=== PATIENT | male | born 1965 | race Caucasian/White ===

== ENCOUNTER 2017-08-15 17:09 | Emergency (ER) | payer BC ==
[~2017-08-15] VITALS: Ht 172.7 cm; Wt 120.2 kg
[~2017-08-15 17:09] MED LIST changes: -ASPI81TA94 PO; -ATOR20TA22 PO; -CLOP75TA43 PO
[2017-08-15] MEDS ORDERED: ASPIRIN 81 MG CHEW PO ONE (17:25)
[2017-08-15] MEDS ORDERED: CLOPIDOGREL BISULFATE 75MG TAB PO ONE (17:30)
[2017-08-15] MEDS ORDERED: HEPARIN* SOD/D5W 25000 U/500ML 500 ML IV ONE ×2 (17:30→17:46)
[2017-08-15 17:31] LABS: PLATELET COUNT, AUTOMATED 233 K/uL (150-450)
[2017-08-15] MEDS ORDERED: LABETALOL HCL 100 MG/20ML VIAL IVP ONE (17:40)
[2017-08-15] MEDS ORDERED: LABETALOL HCL 20 MG/4 ML SYR IVP ONE (17:40)
[2017-08-15 17:46] LABS: INR 0.99
[2017-08-15] MEDS ORDERED: HEPARIN (PORC) 5000 UN/ML VIAL IVP ONE (17:50)
[2017-08-15] MEDS ORDERED: TENECTEPLASE 50 MG KIT IVP ONE (17:50)
[2017-08-15] MEDS ORDERED: NITROGLYCERN* 50 MG/D5W 250 ML 250 ML IV SCH (17:50)
--- NOTE | 2017-08-15 17:56 | EKG ---
[place] [facility] [place] NAME: RADHA HOLM : [id number] MR: [id number] V: [id number] EXAM DATE: ORDERING PHYSICIAN: LINDA CLARKE TECHNOLOGIST: EFREN Adler Reason : CARDIAC Blood Pressure : / mmHG Vent. Rate : 085 BPM Atrial Rate : 085 BPM P-R Int : 140 ms QRS Dur : 114 ms QT Int : 386 ms P-R-T Axes : 014 -60 084 degrees QTc Int : 459 ms Sinus rhythm with occasional premature ventricular complexes and fusion complexes Left axis deviation ST elevation, consider anterior injury or acute infarct Nonspecific interventricular conduction delay Abnormal ECG No previous ECGs available Confirmed by BERONICA HUNTER ([id number]) on 08/15/2017 7:47:47 PM Referred By: RON Confirmed By:BERONICA HUNTER
--- NOTE | 2017-08-15 17:56 | EKG ---
[place] [facility] [place]IENT NAME: RADHA HOLM : [id number] MR: [id number] V: [id number] EXAM DATE: ORDERING PHYSICIAN: LINDA CLARKE TECHNOLOGIST: EFREN Adler Reason : REPEAT Blood Pressure : / mmHG Vent. Rate : 081 BPM Atrial Rate : 081 BPM P-R Int : 134 ms QRS Dur : 122 ms QT Int : 398 ms P-R-T Axes : 023 -60 095 degrees QTc Int : 462 ms Sinus rhythm with occasional premature ventricular complexes and fusion complexes Possible Left atrial enlargement Left axis deviation Nonspecific intraventricular conduction delay ST elevation, consider anterior injury or acute infarct Abnormal ECG Confirmed by BERONICA HUNTER ([id number]) on 08/15/2017 7:49:45 PM Referred By: CORINNA Confirmed By:BERONICA HUNTER
--- NOTE | 2017-08-15 18:12 | ER Report ---
History and Physical Time Seen By MD: 17:10 Hx. of Stated Complaint: PT PRESENTS WITH CHEST PAIN FRO 30 MIN. 3 AK'S IN THE PAST HPI/ROS CHIEF COMPLAINT: Chest pain HISTORY OF PRESENT ILLNESS: Patient is a 52-year-old male who presents to ED with complaint of chest pain for the past 30 minutes. He states that he was just sitting there when he started to notice pressure in his mid chest radiating into his jaw and into his left shoulder. He states that 2 hours prior to this he did hit his head on a car door but denies any LOC. He has not had any nausea or vomiting. He denies any dizziness or vision changes. He has not noted any shortness of breath. 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 REVIEW OF SYSTEMS: Constitutional: No fever, no chills. Eyes: No discharge. ENT: No sore throat. Cardiovascular: See history of present illness. No palpitations. Respiratory: No cough, no shortness of breath. Gastrointestinal: No abdominal pain, no vomiting. Genitourinary: No hematuria. Musculoskeletal: No back pain. Skin: No rashes. Neurological: See history of present illness. Allergies: Coded Allergies: No Known Allergies (Verified Allergy, Mild, 08/15/17) Home Meds Active Scripts Allopurinol (ALLOPURINOL) 100 Mg Tablet, 1 TAB PO QDAY, #90 TAB 0 Refills Prov:ALLEN PADILLA DNP, [employer]-BC 05/16/17 Metoprolol Succinate (TOPROL XL) 50 Mg Tab.er.24h, 1 TAB PO QDAY for Blood Pressure, #30 TAB Prov:APOLLO ALONSO DO 05/13/17 Reported Medications Ibuprofen (IBUPROFEN) 200 Mg Capsule, 1-2 CAP PO PRN Y for PAIN/HEADACHE, CAPSULE 05/17/17 Vitamin E Mixed (VITAMIN E) Unknown Strength Tablet, PO QDAY 05/17/17 [place]-3 Fatty Acids (Fish Oil) 1 Cap Capsule, 1 CAP PO QDAY Y, 0 Refills 01/29/11 Multivitamins (Multivitamin) 1 Each Capsule, 1 EACH PO QDAY, 0 Refills 01/29/11 Aspirin (Aspirin) 325 Mg Tab, 325 MG PO ONCE 01/29/11 Discontinued Scripts Oxycodone Hcl/Acetaminophen (PERCOCET 5-325 MG TABLET) 1 Each Tablet, 1 EACH PO Q4-6H Y for PAIN, #12 Prov:APOLLO ALONSO DO 05/13/17 Prednisone 10 Mg Tab (PREDNISONE 10 MG TAB) 10 Mg Tablet, 10 MG PO QDAY Y for reduce arthritis, #9 2 tabs daily for 3 days 1 tab daily for 3 days Prov:APOLLO ALONSO DO 05/13/17 Reviewed Nurses Notes: Yes Old Medical Records Reviewed: Yes Hx Smoking: No Smoking Status: Never Smoker Hx Substance Use Disorder: No Hx Alcohol Use: Yes (OCC) Constitutional Vital Sign - Last 24 Hours 08/15/17 08/15/17 08/15/17 08/15/17 17:12 17:13 17:14 17:30 Temp 97.3 Pulse 87 88 90 82 Resp 24 B/P (MAP) 199/137 187/160 (169) 199/137 (157) 191/134 (153) Pulse Ox 96 O2 Delivery Room Air 08/15/17 08/15/17 08/15/17 08/15/17 17:39 17:45 17:50 18:00 Pulse 90 78 B/P (MAP) 204/139 (160) 184/129 (147) 175/123 (140) Pulse Ox 96 93 08/15/17 08/15/17 08/15/17 08/15/17 18:04 18:05 18:11 18:15 Pulse 80 B/P (MAP) 172/126 (141) 171/127 (142) O2 Flow Rate 2.0 08/15/17 08/15/17 08/15/17 18:18 18:20 18:22 B/P (MAP) 180/126 (144) 182/122 (142) 179/129 (146) Intake and Output 08/15/17 08/15/17 08/16/17 15:00 23:00 07:00 Intake Total 2 ml Balance 2 ml Physical Exam General Appearance: The patient is alert, has no immediate need for airway protection and no signs of toxicity. Patient appears to be no acute distress. Eyes: Pupils equal and round no pallor or injection. ENT, Mouth: Mucous membranes are moist. Respiratory: There are no retractions, lungs are clear to auscultation. Cardiovascular: Regular rate and rhythm. Gastrointestinal: Abdomen is soft and non tender, no masses, bowel sounds normal. Neurological: Cranial Nerves II-12 intact. Skin: Warm and dry, no rashes. Musculoskeletal: Neck is supple non tender. Extremities are nontender, nonswollen and have full range of motion. DIFFERENTIAL DIAGNOSIS: After history and physical exam differential diagnosis was considered for chest pain including but not limited to myocardial ischemia, pericarditis pulmonary embolus, chest wall pain, pleural inflammation and pulmonary infectious causes. Medical Decision Making Data Points Result Diagram: 08/15/17 1715 08/15/17 1715 Laboratory Hematology Test 08/15/17 17:15 Red Blood Count 6.92 M/uL (4.00-5.60) Mean Corpuscular Volume 83.7 fL (80.0-96.0) Mean Corpuscular Hemoglobin 28.1 pg (26.0-33.0) Mean Corpuscular Hemoglobin Concent 33.6 g/dL (32.0-36.0) Red Cell Distribution Width 14.2 % (11.5-14.5) Mean Platelet Volume 8.3 fL (7.2-11.1) Neutrophils (%) (Auto) 50.6 % (39.4-72.5) Lymphocytes (%) (Auto) 37.0 % (17.6-49.6) Monocytes (%) (Auto) 9.5 % (4.1-12.4) Eosinophils (%) (Auto) 2.1 % (0.4-6.7) Basophils (%) (Auto) 0.8 % (0.3-1.4) Nucleated RBC Relative Count (auto) 0.3 /100WBC Neutrophils # (Auto) 6.2 K/uL (2.0-7.4) Lymphocytes # (Auto) 4.5 K/uL (1.3-3.6) Monocytes # (Auto) 1.2 K/uL (0.3-1.0) Eosinophils # (Auto) 0.3 K/uL (0.0-0.5) Basophils # (Auto) 0.1 K/uL (0.0-0.1) Nucleated RBC Absolute Count (auto) 0.03 K/uL Prothrombin Time 13.1 seconds (12.0-14.4) Prothromb Time International Ratio 0.99 Activated Partial Thromboplast Time 28 seconds (23-35) D-Dimer Quantitative (PE/DVT) 0.29 ug/ml (0-0.50) Sodium Level 139 mmol/L (137-145) Potassium Level 3.5 mmol/L (3.5-5.0) Chloride Level 99 mmol/L (98-107) Carbon Dioxide Level 26 mmol/L (22-30) Blood Urea Nitrogen 14 mg/dl (9-21) Creatinine 1.00 mg/dl (0.66-1.25) Glomerular Filtration Rate Calc > 60.0 Random Glucose 99 mg/dl (75-110) Calcium Level 9.6 mg/dl (8.4-10.2) Total Bilirubin 0.7 mg/dl (0.2-1.3) Aspartate Amino Transf (AST/SGOT) 50 U/L (0-35) Alanine Aminotransferase (ALT/SGPT) 82 U/L (0-56) Alkaline Phosphatase 101 U/L (0-126) Troponin I 0.198 ng/ml Total Protein 8.5 gm/dl (6.3-8.2) Albumin 4.6 g/dl (3.5-5.0) Chemistry Test 08/15/17 17:15 White Blood Count 12.2 k/uL (4.5-11.0) Red Blood Count 6.92 M/uL (4.00-5.60) Hemoglobin 19.5 g/dL (14.0-18.0) Hematocrit 57.9 % (42.0-52.0) Mean Corpuscular Volume 83.7 fL (80.0-96.0) Mean Corpuscular Hemoglobin 28.1 pg (26.0-33.0) Mean Corpuscular Hemoglobin Concent 33.6 g/dL (32.0-36.0) Red Cell Distribution Width 14.2 % (11.5-14.5) Platelet Count 233 K/uL (150-450) Mean Platelet Volume 8.3 fL (7.2-11.1) Neutrophils (%) (Auto) 50.6 % (39.4-72.5) Lymphocytes (%) (Auto) 37.0 % (17.6-49.6) Monocytes (%) (Auto) 9.5 % (4.1-12.4) Eosinophils (%) (Auto) 2.1 % (0.4-6.7) Basophils (%) (Auto) 0.8 % (0.3-1.4) Nucleated RBC Relative Count (auto) 0.3 /100WBC Neutrophils # (Auto) 6.2 K/uL (2.0-7.4) Lymphocytes # (Auto) 4.5 K/uL (1.3-3.6) Monocytes # (Auto) 1.2 K/uL (0.3-1.0) Eosinophils # (Auto) 0.3 K/uL (0.0-0.5) Basophils # (Auto) 0.1 K/uL (0.0-0.1) Nucleated RBC Absolute Count (auto) 0.03 K/uL Prothrombin Time 13.1 seconds (12.0-14.4) Prothromb Time International Ratio 0.99 Activated Partial Thromboplast Time 28 seconds (23-35) D-Dimer Quantitative (PE/DVT) 0.29 ug/ml (0-0.50) Glomerular Filtration Rate Calc > 60.0 Calcium Level 9.6 mg/dl (8.4-10.2) Total Bilirubin 0.7 mg/dl (0.2-1.3) Aspartate Amino Transf (AST/SGOT) 50 U/L (0-35) Alanine Aminotransferase (ALT/SGPT) 82 U/L (0-56) Alkaline Phosphatase 101 U/L (0-126) Troponin I 0.198 ng/ml Total Protein 8.5 gm/dl (6.3-8.2) Albumin 4.6 g/dl (3.5-5.0) Coagulation Test 08/15/17 17:15 Prothrombin Time 13.1 seconds Prothromb Time International Ratio 0.99 Activated Partial Thromboplast Time 28 seconds D-Dimer Quantitative (PE/DVT) 0.29 ug/ml EKG/Imaging EKG Interpretation 12 lead EKG: Rhythm: Normal sinus rhythm, rate 85 bpm [place]: normal QRS: normal ST segments: ST elevation noted in V1 and V2 consistent with anterior STEMI 12 lead EK:57 Rhythm: Normal sinus rhythm, rate 81 beats for minute [place]: normal QRS: normal ST segments: ST elevation again noted V1 and V2. 12 lead EK:13 Rhythm: Sinus rhythm, rate 82 bpm [place]: normal QRS: normal ST segments: ST elevation noted in V1 and V2 with some reciprocal changes in aVR and aVL. 12 lead EK:23 Rhythm: normal sinus rhythm [place]: normal QRS: normal ST segments: ST elevation again noted in V1 and V2 with some reciprocal changes in aVR and aVL. Monitor Interpretation: Normal Sinus Rhythm Imaging CXR: IMPRESSION: No acute findings. Report Dictated By: Molly Yuan MD at 08/15/2017 6:09 PM Report E-Signed By: Molly Yuan MD at 08/15/2017 6:[address] Head: IMPRESSION: 1. Mild senescent changes without acute abnormality. Report Dictated By: Lamonte Hoang at 08/15/2017 6:14 PM Report E-Signed By: Lamonte Hoang at 08/15/2017 6:18 PM ED Course/Re-evaluation ED Course 08/15/2017 6:00:58 pm - Will obtain labs, EKG, chest x-ray. Patient will also need a CT of his head. Patient had obvious ST elevation of V1 and V2 consistent with a anterior STEMI. Discussed patient with Dr. Barrett, Cardiology and discussed EKG findings with patient's history. Discussed that he does have a STEMI. He advises to give patient. 300 mg Plavix, heparin bolus and drip, lytics. Patient has significant hypertension now we'll give him 20 mg IV labetalol and nitro drip prior to push of lytics. Will also need a CT of the head prior to push lytics. Patient had normal CT of the head and chest x-ray per my read and heparin and lytics were pushed. Completed serial EKGs showing continuing ST elevation in V1 and V2 with some advancement of reciprocal changes in aVR and aVL. Decision to Disposition Date: Aug 15, 2017 Decision to Disposition Time: 18:02 Depart Departure Latest Vital Signs Vital Signs Date Time Temp Pulse Resp B/P (MAP) Pulse Ox O2 Delivery O2 Flow Rate FiO2 08/15/17 18:22 179/129 (146) 08/15/17 18:05 80 08/15/17 18:04 2.0 08/15/17 17:50 93 08/15/17 17:12 97.3 24 Room Air Impression: Primary Impression: STEMI (ST elevation myocardial infarction) Condition: Improved Disposition: XFER TO [facility] [employer] WORK[facility]/PA consult with MD: Verbally MD Consult Note: Dr. Barrett, Cardiology Dr. Hollingsworth, ED Problem Qualifiers Primary Impression: STEMI (ST elevation myocardial infarction) Involved coronary artery: unspecified coronary artery Qualified Codes: I21.3 - ST elevation (STEMI) myocardial infarction of unspecified site LINDA CLARKE PA-C Aug 15, 2017 18:12
--- NOTE | 2017-08-15 18:13 | RADIOLOGY IMAGING REPORT ---
FACILITY: [facility] PATIENT NAME: Yobani Mckeon : 1965 MR: [id number] V: [id number] EXAM DATE: ORDERING PHYSICIAN: LINDA CLARKE TECHNOLOGIST: [place] [facility] [place] Patient: Yobani Mckeon : 1965 Visit/Account:[id number] Date of Sevice: 08/15/2017 INDICATION: Chest Pain. DATE: 08/15/2017 6:09 PM. TECHNIQUE: CHEST SINGLE AP COMPARISON: January 29, 2011 radiograph FINDINGS: Heart size is at the upper limits of normal. No focal consolidation or effusion. No pneumot horax. IMPRESSION: No acute findings. Report Dictated By: Molly Yuan MD at 08/15/2017 6:09 PM Report E-Signed By: Molly Yuan MD at 08/15/2017 6:09 PM WSN:[id number]
--- NOTE | 2017-08-15 18:21 | RADIOLOGY IMAGING REPORT ---
FACILITY: [facility] - [place] PATIENT NAME: Yobani Mckeon : 1965 MR: [id number] V: [id number] EXAM DATE: ORDERING PHYSICIAN: LINDA CLARKE TECHNOLOGIST: Location: [facility] - [place] Patient: Yobani Mckeon : 1965 Visit/Account:[id number] Date of Sevice: 08/15/2017 CT Head without contrast Indication: Head pain. Hit head earlier today. Comparison: None available Technique: Axial CT images were obtained through the brain from the skull base to the vertex without administration of IV contrast. Reformatted coronal and sagittal images were also obtained. One of the following dose optimization techniques was utilized in the performance of this exam: autom ated exposure control; adjustment of the mA and/or kV according to the patient's size; or use of an i terative reconstruction technique. Specific details can be referenced in the facility's radiology CT exam operational policy. Findings: No evidence of mass, mass effect, or midline shift. No acute intracranial hemorrhage or acute territorial infarction. No extra-axial fluid collection or hydrocephalus. Mild age-related cerebral atrophy. Minimal perivent ricular white matter ischemic changes consistent small vessel disease. Age-related basal ganglia calc ifications. Garcia/white matter differentiation appears normal. Bony structures show no fractures or lesions. Mild bilateral internal carotid artery calcifications. The visualized paranasal sinuses and mastoid air cells are clear. IMPRESSION: 1. Mild senescent changes without acute abnormality. Report Dictated By: Lamonte Hoang at 08/15/2017 6:14 PM Report E-Signed By: Lamonte Hoang at 08/15/2017 6:18 PM WSN:[id number]
[2017-08-15 18:22] VITALS: BP 179/129
--- NOTE | 2017-08-16 08:54 | EKG ---
FACILITY: [facility] PATIENT NAME: RADHA HOLM : [id number] MR: [id number] V: [id number] EXAM DATE: ORDERING PHYSICIAN: LINDA CLARKE TECHNOLOGIST: Test Reason : Blood Pressure : / mmHG Vent. Rate : 082 BPM Atrial Rate : 082 BPM P-R Int : 156 ms QRS Dur : 120 ms QT Int : 392 ms P-R-T Axes : 010 -58 092 degrees QTc Int : 457 ms Sinus rhythm with fusion complexes Left axis deviation Nonspecific intraventricular conduction delay ST elevation, consider anterior injury or acute infarct ACUTE [place] Abnormal ECG No previous ECGs available Confirmed by TODD JACOBO ([id number]) on 08/16/2017 5:42:54 PM Referred By: Confirmed By:TODD JACOBO
--- NOTE | 2017-08-16 08:54 | EKG ---
[place] [facility] [place] RADHA HOLM : [id number] MR: [id number] V: [id number] EXAM DATE: ORDERING PHYSICIAN: LINDA CLARKE TECHNOLOGIST: Test Reason : Blood Pressure : / mmHG Vent. Rate : 082 BPM Atrial Rate : 082 BPM P-R Int : 156 ms QRS Dur : 118 ms QT Int : 392 ms P-R-T Axes : 014 -61 093 degrees QTc Int : 457 ms Normal sinus rhythm Left axis deviation Anterior infarct , possibly acute ACUTE [place] Abnormal ECG No previous ECGs available Confirmed by TODD JACOBO ([id number]) on 08/16/2017 5:43:00 PM Referred By: Confirmed By:TODD JACOBO
== END 2017-08-15 18:45 | disposition short-term general hospital (02) ==
LOC: ER 17:25
DX: I21.3 ST elevation (STEMI) myocardial infarction of unspecified site (principal)
CPT/HCPCS: 70450; 71045; 84484; 85025; 85379; 85610; 85730; 93005; 96365; 96367; 96375; 99285; J1644; J3101; J3490; 82040; 82247; 82310; 82374; 82435; 82565; 82947; 84075; 84132; 84155; 84295; 84450; 84460; 84520

== ENCOUNTER → 2017-08-15 | Outpatient (REF) ==
[~2017-08-15] MED LIST: ALLO100T70 PO; ASP325 PO; ASPI81TA94 PO; ATOR20TA22 PO; CLO75 PO; CLOP75TA43 PO; FISH OIL1 CAP PO; IBUP200C71 PO; METO-233 PO; METO1TAB PO; METO25TA93 PO; MULT1CAP59 PO; OXYC-865 PO; OXYC20TA86 PO; PER PO; PRED-1 PO; SIMV-1 PO; VITA100T4 PO; ZOCAR; [UNRECOGNIZED DRUG - REMARK]
== END ==
LOC: AMB 18:08
PROVIDERS: ATTEND Nurse Practitioner
DX: Z02.9 Encounter for administrative examinations, unspecified (principal)

== ENCOUNTER 2017-08-22 15:11 | Emergency (ER) | payer BC ==
[~2017-08-22] VITALS: Ht 172.7 cm; Wt 124.7 kg
[~2017-08-22 15:11] MED LIST changes: -ASPI81TA94 PO; -ATOR20TA22 PO; -CLOP75TA43 PO
[2017-08-22] MEDS ORDERED: ATOR20TA22 PO (15:21)
[2017-08-22] MEDS ORDERED: CLOP75TA43 PO (15:21)
[2017-08-22] MEDS ORDERED: ASPI81TA94 PO (15:21)
[2017-08-22] MEDS ORDERED: ASPIRIN 81 MG CHEW PO ONE (15:25)
[2017-08-22 15:37] LABS: PLATELET COUNT, AUTOMATED 263 K/uL (150-450)
[2017-08-22] MEDS ORDERED: NITROGLYCERIN 0.4 MG SUBL SL ONE (15:40)
[2017-08-22 15:46] LABS: INR 1.05
--- NOTE | 2017-08-22 15:48 | RADIOLOGY IMAGING REPORT ---
FACILITY: [facility] - [place] PATIENT NAME: Yobani Mckeon : 1965 MR: [id number] V: [id number] EXAM DATE: ORDERING PHYSICIAN: LINDA CLARKE TECHNOLOGIST: Location: [facility] Patient: Yobani Mckeon : 1965 Visit/Account:[id number] Date of Sevice: 08/22/2017 CHEST SINGLE AP Indication: Chest pain.. Comparison: 08/07/2017. Findings: Cardia mediastinal silhouette and pulmonary vessels within normal limits for the technique. Sternotom y changes are again present. There is no focal infiltrate or lobar consolidation. No pneumothorax or pleural effusion. No nodule. Upper abdomen is unremarkable. No acute bony abnormality. IMPRESSION: 1. No acute cardiopulmonary process. Report Dictated By: Lamonte Hoang at 08/22/2017 3:43 PM Report E-Signed By: Lamonte Hoang at 08/22/2017 3:43 PM WSN:[id number]
--- NOTE | 2017-08-22 16:06 | EKG ---
[facility] PATIENT NAME: RADHA HOLM : [id number] MR: [id number] V: [id number] EXAM DATE: ORDERING PHYSICIAN: LINDA CLARKE TECHNOLOGIST: EFREN Adler Reason : CP Blood Pressure : / mmHG Vent. Rate : 083 BPM Atrial Rate : 083 BPM P-R Int : 124 ms QRS Dur : 110 ms QT Int : 374 ms P-R-T Axes : 029 -42 -09 degrees QTc Int : 439 ms Sinus rhythm Left axis deviation Poor R wave progression anteriorly Diffuse ST changes appear ischemic Abnormal ECG Confirmed by BERONICA HUNTER ([id number]) on 08/23/2017 5:47:38 AM Referred By: CORINNA Confirmed By:BERONICA HUNTER
[2017-08-22] MEDS ORDERED: HEPARIN (PORC) 5000 UN/ML VIAL IVP ONE (16:10)
[2017-08-22] MEDS ORDERED: HEPARIN* SOD/D5W 25000 U/500ML 500 ML IV ONE (16:10)
--- NOTE | 2017-08-22 16:16 | EKG ---
FACILITY: [facility] PATIENT NAME: RADHA HOLM : [id number] MR: [id number] V: [id number] EXAM DATE: ORDERING PHYSICIAN: LINDA CLARKE TECHNOLOGIST: EFREN Adler Reason : REPEAT Blood Pressure : / mmHG Vent. Rate : 075 BPM Atrial Rate : 075 BPM P-R Int : 130 ms QRS Dur : 108 ms QT Int : 384 ms P-R-T Axes : 025 -40 -16 degrees QTc Int : 428 ms Sinus Left axis deviation Diffuse ST changes with elevation in I, AVL Lateral injury pattern ACUTE ID Abnormal ECG Confirmed by BERONICA HUNTER ([id number]) on 08/23/2017 5:49:15 AM Referred By: CORINNA Confirmed By:BERONICA HUNTER
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
[2017-08-22 16:45] VITALS: BP 125/89
[2017-08-22] MEDS ORDERED: TENECTEPLASE 50 MG KIT IVP ONE (16:55)
--- NOTE | 2017-08-22 16:57 | EKG ---
FACILITY: [facility] PATIENT NAME: RADHA HOLM : [id number] MR: [id number] V: [id number] EXAM DATE: ORDERING PHYSICIAN: LINDA CLARKE TECHNOLOGIST: EFREN Adler Reason : REPEAT Blood Pressure : / mmHG Vent. Rate : 074 BPM Atrial Rate : 074 BPM P-R Int : 140 ms QRS Dur : 112 ms QT Int : 394 ms P-R-T Axes : 010 -44 -11 degrees QTc Int : 437 ms Sinus rhythm Left axis deviation Poor R wave progression anteriorly Diffuse ST changes with elevation in I, AVL Lateral injury pattern ACUTE LA Abnormal ECG Confirmed by BERONICA HUNTER ([id number]) on 08/23/2017 5:50:39 AM Referred By: CORINNA Confirmed By:BERONICA HUNTER
--- NOTE | 2017-08-23 08:10 | EKG ---
FACILITY: [facility] [place] PATIENT NAME: RADHA HOLM : [id number] MR: [id number] V: [id number] EXAM DATE: ORDERING PHYSICIAN: LINDA CLARKE TECHNOLOGIST: EFREN Adler Reason : REPEAT Blood Pressure : / mmHG Vent. Rate : 074 BPM Atrial Rate : 074 BPM P-R Int : 124 ms QRS Dur : 114 ms QT Int : 400 ms P-R-T Axes : 016 -42 -07 degrees QTc Int : 444 ms Normal sinus rhythm Left axis deviation Cannot rule out Anterior infarct (cited on or before 15-AUG-2017) Lateral injury pattern ACUTE PR Abnormal ECG When compared with ECG of 22-AUG-2017 16:31, No significant change was found Confirmed by GHULAM BOURNE ([id number]) on 08/23/2017 2:04:14 PM Referred By: CORINNA Confirmed By:GHULAM BOURNE
--- NOTE | 2017-08-23 08:10 | EKG ---
FACILITY: [facility] PATIENT NAME: RADHA HOLM : [id number] MR: [id number] V: [id number] EXAM DATE: ORDERING PHYSICIAN: LINDA CLARKE TECHNOLOGIST: EFREN Adler Reason : REPEAT Blood Pressure : / mmHG Vent. Rate : 074 BPM Atrial Rate : 074 BPM P-R Int : 122 ms QRS Dur : 116 ms QT Int : 402 ms P-R-T Axes : 024 -40 -12 degrees QTc Int : 446 ms Normal sinus rhythm Left axis deviation Cannot rule out Anterior infarct (cited on or before 15-AUG-2017) Lateral injury pattern ACUTE HI Abnormal ECG When compared with ECG of 22-AUG-2017 16:05, Serial changes of Anterior infarct present Confirmed by GHULAM BOURNE ([id number]) on 08/23/2017 2:03:55 PM Referred By: CORINNA Confirmed By:GHULAM BOURNE
--- NOTE | 2017-08-23 08:10 | EKG ---
FACILITY: [facility] [place] PATIENT NAME: RADHA HOLM : [id number] MR: [id number] V: [id number] EXAM DATE: ORDERING PHYSICIAN: LINDA CLARKE TECHNOLOGIST: EFREN Adler Reason : REPEAT Blood Pressure : / mmHG Vent. Rate : 074 BPM Atrial Rate : 074 BPM P-R Int : 128 ms QRS Dur : 112 ms QT Int : 402 ms P-R-T Axes : 021 -39 -12 degrees QTc Int : 446 ms Normal sinus rhythm Left axis deviation Cannot rule out Anterior infarct (cited on or before 15-AUG-2017) Lateral injury pattern ACUTE [place] Abnormal ECG When compared with ECG of 22-AUG-2017 16:22, No significant change was found Confirmed by GHULAM BOURNE ([id number]) on 08/23/2017 2:04:35 PM Referred By: CORINNA Confirmed By:GHULAM BOURNE
== END 2017-08-22 17:10 | disposition short-term general hospital (02) ==
LOC: ER 15:16
DX: I21.3 ST elevation (STEMI) myocardial infarction of unspecified site (principal); R07.89 Other chest pain
CPT/HCPCS: 71045; 84484; 85025; 85379; 85610; 85730; 93005; 96365; 96375; 99285; J1644; J3101; 82040; 82247; 82310; 82374; 82435; 82565; 82947; 84075; 84132; 84155; 84295; 84450; 84460; 84520

== ENCOUNTER → 2017-08-22 | Outpatient (REF) ==
[~2017-08-22] MED LIST changes: +ASPI81TA94 PO; +ATOR20TA22 PO; +CLOP75TA43 PO
== END ==
LOC: AMB 16:39
PROVIDERS: ATTEND Nurse Practitioner
DX: Z02.9 Encounter for administrative examinations, unspecified (principal)

== ENCOUNTER 2017-09-01 18:42 | Emergency (ER) | payer BC ==
[~2017-09-01 18:42] MED LIST changes: +ASPI81TA94 PO; +ATOR20TA22 PO; +CLOP75TA43 PO
--- NOTE | 2017-09-01 18:45 | ER Report ---
History and Physical Time Seen By MD: 18:44 HPI/ROS CHIEF COMPLAINT: Abdominal pain, back pain HISTORY OF PRESENT ILLNESS: 52-year-old male presents ambulatory to the ER not feeling well since this morning. Complains of bilateral flank and back pain radiating around to his lower anterior abdomen. Patient noted pain radiating into his testicles and groin this morning but that has resolved. Patient states he ate out last night at [employer]. Patient reports she's had several episodes of vomiting. When he strained ED he's vomited up whatever he ate or drank. Patient's history is significant for having an acute STEMI receiving thrombolytics and being sent to [facility] one week ago. Patient denies chest pain, shortness breath, or diaphoresis. Patient states his Plavix was discontinued. He is on Birlinta now. Patient denies history of abdominal surgeries. He's had no diarrhea or constipation. He's had no dysuria , frequency or hematuria. He notes no exacerbating or relieving factors regarding his pain except when he vomits he feels better. REVIEW OF SYSTEMS: Respiratory: No cough, no dyspnea. Cardiovascular: No chest pain, no palpitations. Gastrointestinal: As above Musculoskeletal: No back pain. Allergies: Coded Allergies: No Known Allergies (Verified Allergy, Mild, 09/01/17) Home Meds Active Scripts Ondansetron Hcl (ZOFRAN) 4 Mg Tablet, 4 MG PO Q8-12H, #10 Prov:APOLLO ALONSO DO 09/01/17 Ondansetron Hcl (ZOFRAN) 4 Mg Tablet, 4 MG PO Q6H Y for NAUSEA/VOMITING, #10 Prov:APOLLO ALONSO DO 09/01/17 Allopurinol (ALLOPURINOL) 100 Mg Tablet, 1 TAB PO QDAY, #90 TAB 0 Refills Prov:ALLEN PADILLA DNP, TELEPHONE [employer]ICITOR-BC 05/16/17 Reported Medications Ticagrelor (BRILINTA) 90 Mg Tablet, 90 MG PO 09/01/17 Atorvastatin Calcium (LIPITOR) 20 Mg Tablet, 1 TAB PO QDAY, TAB 08/22/17 Aspirin (ASPIRIN) 81 Mg Tab.chew, 81 MG PO QDAY, TAB.CHEW 08/22/17 Discontinued Reported Medications Clopidogrel Bisulfate (PLAVIX) 75 Mg Tablet, 1 TAB PO QDAY, TAB 08/22/17 Reviewed Nurses Notes: Yes Old Medical Records Reviewed: Yes Hx Smoking: No Smoking Status: Never Smoker Hx Substance Use Disorder: No Hx Alcohol Use: Yes (OCC) Constitutional Vital Sign - Last 24 Hours 09/01/17 09/01/17 09/01/17 09/01/17 18:48 18:51 18:52 18:57 Temp 98.0 Pulse 75 75 Resp 14 14 B/P (MAP) 151/100 (117) 151/100 118/94 (102) Pulse Ox 94 92 O2 Delivery Room Air 09/01/17 09/01/17 09/01/17 09/01/17 19:00 19:12 19:27 19:30 Pulse 69 64 Resp 16 18 B/P (MAP) 128/102 (111) 132/89 (103) Pulse Ox 93 94 09/01/17 09/01/17 09/01/17 09/01/17 19:41 19:42 19:57 20:00 Pulse 67 71 Resp 19 16 B/P (MAP) 142/97 (112) 145/101 (116) Pulse Ox 96 96 09/01/17 09/01/17 09/01/17 09/01/17 20:12 20:27 20:32 20:47 Pulse 73 69 70 70 Resp 21 17 10 0 Pulse Ox 95 97 96 93 09/01/17 09/01/17 09/01/17 09/01/17 21:00 21:17 21:30 21:35 Pulse 64 73 Resp 25 23 B/P (MAP) 120/84 (96) 111/81 (91) Pulse Ox 92 93 09/01/17 09/01/17 09/01/17 09/01/17 21:50 22:00 22:05 22:20 Pulse 69 67 67 Resp 19 19 25 B/P (MAP) 113/83 (93) Pulse Ox 92 92 93 09/01/17 09/01/17 09/01/17 22:30 22:35 22:42 Pulse 67 85 Resp 19 16 B/P (MAP) 111/79 (90) 131/85 (100) Pulse Ox 94 92 O2 Delivery Room Air Physical Exam General Appearance: The patient is alert, has no immediate need for airway protection and no current signs of toxicity. Vital signs stable, afebrile, pulse ox normal HEENT: Pupils equal and round no injection. Oropharynx without redness or exudate, mucous members are moist Respiratory: Chest is non tender, lungs are clear to auscultation. Cardiac: regular rate and rhythm Gastrointestinal: Abdomen is soft, mild epigastric tenderness, no rebound or guarding, no masses, bowel sounds normal. Musculoskeletal: Neck: Neck is supple and non tender. Extremities have full range of motion and are non tender. Skin: No rashes or lesions. DIFFERENTIAL DIAGNOSIS: After history and physical exam differential diagnosis was considered for abdominal pain including but not limited to appendicitis, cholecystitis, gastritis and urinary tract infection. Medical Decision Making Data Points Result Diagram: 09/01/17190409/01/171904 Laboratory Hematology Test 09/01/17 19:05 09/01/17 19:38 09/01/17 21:55 Red Blood Count 6.17 M/uL (4.00-5.60) Mean Corpuscular Volume 83.1 fL (80.0-96.0) Mean Corpuscular Hemoglobin 28.5 pg (26.0-33.0) Mean Corpuscular Hemoglobin Concent 34.3 g/dL (32.0-36.0) Red Cell Distribution Width 13.3 % (11.5-14.5) Mean Platelet Volume 9.1 fL (7.2-11.1) Neutrophils (%) (Auto) 78.6 % (39.4-72.5) Lymphocytes (%) (Auto) 13.9 % (17.6-49.6) Monocytes (%) (Auto) 6.1 % (4.1-12.4) Eosinophils (%) (Auto) 0.7 % (0.4-6.7) Basophils (%) (Auto) 0.7 % (0.3-1.4) Nucleated RBC Relative Count (auto) 0.1 /100WBC Neutrophils # (Auto) 8.0 K/uL (2.0-7.4) Lymphocytes # (Auto) 1.4 K/uL (1.3-3.6) Monocytes # (Auto) 0.6 K/uL (0.3-1.0) Eosinophils # (Auto) 0.1 K/uL (0.0-0.5) Basophils # (Auto) 0.1 K/uL (0.0-0.1) Nucleated RBC Absolute Count (auto) 0.01 K/uL Sodium Level 140 mmol/L (137-145) Potassium Level 4.3 mmol/L (3.5-5.0) Chloride Level 108 mmol/L (98-107) Carbon Dioxide Level 18 mmol/L (22-30) Blood Urea Nitrogen 15 mg/dl (9-21) Creatinine 1.40 mg/dl (0.66-1.25) Glomerular Filtration Rate Calc 53.2 Random Glucose 132 mg/dl (75-110) Calcium Level 9.6 mg/dl (8.4-10.2) Total Bilirubin 1.0 mg/dl (0.2-1.3) Aspartate Amino Transf (AST/SGOT) 37 U/L (0-35) Alanine Aminotransferase (ALT/SGPT) 73 U/L (0-56) Alkaline Phosphatase 91 U/L (0-126) Total Protein 7.8 gm/dl (6.3-8.2) Albumin 4.0 g/dl (3.5-5.0) Amylase Level 67 U/L (0-110) Lipase 94 U/L (23-300) Urine Color Yellow Urine Clarity Clear Urine pH 6.0 pH (4.8-9.5) Urine Specific [place] 1.021 Urine Protein Negative mg/dL (NEGATIVE) Urine Glucose (UA) Negative mg/dL (NEGATIVE) Urine Ketones Trace mg/dL (NEGATIVE) Urine Blood Small (NEGATIVE) Urine Nitrite Negative (NEGATIVE) Urine Bilirubin Negative (NEGATIVE) Urine Urobilinogen Negative mg/dL (0.2-1.9) Urine Leukocyte Esterase Negative (NEGATIVE) Urine RBC 8 /HPF (0-2/HPF) Urine WBC 2 /HPF (0-5/HPF) Urine Squamous Epithelial Cells None /LPF (</=FEW) Urine Bacteria Negative /HPF (NONE-FEW) Urine Mucus Few /HPF (NONE-FEW) Troponin I 0.200 ng/ml Chemistry Test 09/01/17 19:05 09/01/17 19:38 09/01/17 21:55 White Blood Count 10.1 k/uL (4.5-11.0) Red Blood Count 6.17 M/uL (4.00-5.60) Hemoglobin 17.6 g/dL (14.0-18.0) Hematocrit 51.3 % (42.0-52.0) Mean Corpuscular Volume 83.1 fL (80.0-96.0) Mean Corpuscular Hemoglobin 28.5 pg (26.0-33.0) Mean Corpuscular Hemoglobin Concent 34.3 g/dL (32.0-36.0) Red Cell Distribution Width 13.3 % (11.5-14.5) Platelet Count 353 K/uL (150-450) Mean Platelet Volume 9.1 fL (7.2-11.1) Neutrophils (%) (Auto) 78.6 % (39.4-72.5) Lymphocytes (%) (Auto) 13.9 % (17.6-49.6) Monocytes (%) (Auto) 6.1 % (4.1-12.4) Eosinophils (%) (Auto) 0.7 % (0.4-6.7) Basophils (%) (Auto) 0.7 % (0.3-1.4) Nucleated RBC Relative Count (auto) 0.1 /100WBC Neutrophils # (Auto) 8.0 K/uL (2.0-7.4) Lymphocytes # (Auto) 1.4 K/uL (1.3-3.6) Monocytes # (Auto) 0.6 K/uL (0.3-1.0) Eosinophils # (Auto) 0.1 K/uL (0.0-0.5) Basophils # (Auto) 0.1 K/uL (0.0-0.1) Nucleated RBC Absolute Count (auto) 0.01 K/uL Glomerular Filtration Rate Calc 53.2 Calcium Level 9.6 mg/dl (8.4-10.2) Total Bilirubin 1.0 mg/dl (0.2-1.3) Aspartate Amino Transf (AST/SGOT) 37 U/L (0-35) Alanine Aminotransferase (ALT/SGPT) 73 U/L (0-56) Alkaline Phosphatase 91 U/L (0-126) Total Protein 7.8 gm/dl (6.3-8.2) Albumin 4.0 g/dl (3.5-5.0) Amylase Level 67 U/L (0-110) Lipase 94 U/L (23-300) Urine Color Yellow Urine Clarity Clear Urine pH 6.0 pH (4.8-9.5) Urine Specific [place] 1.021 Urine Protein Negative mg/dL (NEGATIVE) Urine Glucose (UA) Negative mg/dL (NEGATIVE) Urine Ketones Trace mg/dL (NEGATIVE) Urine Blood Small (NEGATIVE) Urine Nitrite Negative (NEGATIVE) Urine Bilirubin Negative (NEGATIVE) Urine Urobilinogen Negative mg/dL (0.2-1.9) Urine Leukocyte Esterase Negative (NEGATIVE) Urine RBC 8 /HPF (0-2/HPF) Urine WBC 2 /HPF (0-5/HPF) Urine Squamous Epithelial Cells None /LPF (</=FEW) Urine Bacteria Negative /HPF (NONE-FEW) Urine Mucus Few /HPF (NONE-FEW) Troponin I 0.200 ng/ml Urinalysis Test 09/01/17 19:38 Urine Color Yellow Urine Clarity Clear Urine pH 6.0 pH (4.8-9.5) Urine Specific [place] 1.021 Urine Protein Negative mg/dL (NEGATIVE) Urine Glucose (UA) Negative mg/dL (NEGATIVE) Urine Ketones Trace mg/dL (NEGATIVE) Urine Blood Small (NEGATIVE) Urine Nitrite Negative (NEGATIVE) Urine Bilirubin Negative (NEGATIVE) Urine Urobilinogen Negative mg/dL (0.2-1.9) Urine Leukocyte Esterase Negative (NEGATIVE) Urine RBC 8 /HPF (0-2/HPF) Urine WBC 2 /HPF (0-5/HPF) Urine Squamous Epithelial Cells None /LPF (</=FEW) Urine Bacteria Negative /HPF (NONE-FEW) Urine Mucus Few /HPF (NONE-FEW) EKG/Imaging EKG Interpretation 12 lead EK Rhythm: normal sinus rhythm [place]: normal QRS: normal ST segments: normal, comparison to previous EKG dated 08/22/17, acute ischemic changes have resolved. ED Course/Re-evaluation Clinical Indication for ER IV: Hydration, IV Access ED Course Patient was admitted to an examination room. H&P was done. The differential diagnoses was considered. On clinical examination. Patient is abdominal symptoms. His concern is that one week ago he suffered a STEMI. He was given from a [facility] and transferred to [place]. This pain is very different. It's in a bandlike sensation around his upper abdomen. He said several episodes of vomiting. He ate at [employer] earlier. He is suspected of having food poisoning. An EKG shows no ischemic changes. He is treated with IV fluids, Zofran, Toradol. He feels much better. His troponin is mildly elevated at 0.2, which I suspect is washout from his recent STEMI. Patient was monitored for 3 hours and a repeat troponin was ordered. There was no increase. He is advised to conservative treatment plan of a clear liquid diet. He is given a prescription for Zofran. Decision to Disposition Date: Sep 01, 2017 Decision to Disposition Time: 19:36 Depart Departure Latest Vital Signs Vital Signs Date Time Temp Pulse Resp B/P (MAP) Pulse Ox O2 Delivery O2 Flow Rate FiO2 09/01/17 22:42 85 16 131/85 (100) 92 Room Air 09/01/17 18:51 98.0 Impression: Primary Impression: Abdominal pain Additional Impressions: Vomiting History of ST elevation myocardial infarction (STEMI) Food poisoning Condition: Improved Disposition: HOME OR SELF-CARE New Scripts Ondansetron Hcl (ZOFRAN) 4 Mg Tablet 4 MG PO Q8-12H, #10 Prov: APOLLO ALONSO DO 09/01/17 Ondansetron Hcl (ZOFRAN) 4 Mg Tablet 4 MG PO Q6H Y for NAUSEA/VOMITING, #10 Prov: APOLLO ALONSO DO 09/01/17 Patient Instructions: Abdominal Pain (ED), Acute Nausea and Vomiting (ED) Additional Instructions: Follow clear liquid diet for 24-48 hours, then advance to [place]isa diet, bananas, rice, applesauce, toast Use Zofran for nausea control Follow-up with your primary care if unimproved in 2-3 days Problem Qualifiers Primary Impression: Abdominal pain Abdominal location: upper abdomen, unspecified Qualified Codes: R10.10 - Upper abdominal pain, unspecified Additional Impressions: Vomiting Vomiting type: unspecified Vomiting Intractability: unspecified Nausea presence: with nausea Qualified Codes: R11.2 - Nausea with vomiting, unspecified Food poisoning Encounter type: initial encounter Injury intent: accidental or unintentional Qualified Codes: T62.91XA - Toxic effect of unspecified noxious substance eaten as food, accidental (unintentional), initial encounter APOLLO ALONSO DO Sep 01, 2017 18:45
[2017-09-01] MEDS ORDERED: NS(*) 0.9% 1000 ML BAG 1,000 ML IV ONE (18:49)
[2017-09-01] MEDS ORDERED: ONDANSETRON 4 MG/2 ML VIAL IVP ONE ×2 (18:50→20:00)
[2017-09-01] MEDS ORDERED: TICA90TA PO (18:56)
[2017-09-01 19:22] LABS: PLATELET COUNT, AUTOMATED 353 K/uL (150-450)
--- NOTE | 2017-09-01 19:26 | EKG ---
FACILITY: [facility] - [place] PATIENT NAME: RADHA HOLM : [id number] MR: [id number] V: [id number] EXAM DATE: ORDERING PHYSICIAN: APOLLO ALONSO TECHNOLOGIST: Misbah Adler Reason : Blood Pressure : / mmHG Vent. Rate : 074 BPM Atrial Rate : 074 BPM P-R Int : 122 ms QRS Dur : 112 ms QT Int : 406 ms P-R-T Axes : -02 -35 073 degrees QTc Int : 450 ms Normal sinus rhythm Left axis deviation R wave progression consistent with an old ant/sep NM vs lead placement When compared with ECG of 22-AUG-2017 16:47, ST no longer depressed in Inferior leads ST no longer depressed in Anterior leads ST elevation in the lateral leads has resolved Confirmed by ELIZABETH KHAN ([id number]) on 09/01/2017 10:14:54 PM Referred By: Confirmed By:ELIZABETH KHAN
[2017-09-01] MEDS ORDERED: KETOROLAC 30 MG/ML VIAL IVP ONE (20:00)
[2017-09-01] MEDS ORDERED: ONDA4TAB97 PO ×2 (22:13)
[2017-09-01] MEDS ORDERED: ONDANSETRON 4 MG ODT TH SL ONE (22:15)
[2017-09-01 22:42] VITALS: BP 131/85
== END 2017-09-01 23:10 | disposition home or self-care (01) ==
LOC: ER 18:46
DX: T62.91XA Toxic effect of unspecified noxious substance eaten as food, accidental (unintentional), initial encounter (principal)
CPT/HCPCS: 81001; 82150; 83690; 84484; 85025; 93005; 96361; 96374; 96375; 96376; 99284; J1885; J2405; J7030; S0119; 82040; 82247; 82310; 82374; 82435; 82565; 82947; 84075; 84132; 84155; 84295; 84450; 84460; 84520

== ENCOUNTER → 2017-10-03 | Outpatient (CLI) | payer BC ==
[~2017-10-03] MED LIST changes: +ONDA4TAB97 PO; +TICA90TA PO
[2017-10-03 07:22] LABS: LDL CHOLESTEROL 43 mg/dl
--- NOTE | 2017-10-03 15:56 | RADIOLOGY IMAGING REPORT ---
FACILITY: [facility] - [place] PATIENT NAME: Yobani Mckeon : 1965 MR: [id number] V: [id number] EXAM DATE: [id number] ORDERING PHYSICIAN: JONE MELGAR TECHNOLOGIST: Location: [facility] Patient: Yobani Mckeon : 1965 Visit/Account:[id number] Date of Sevice: 10/03/2017 EXAMINATION: Single Isotope SPECT Imaging with Exercise and Gated SPECT Imaging DATE OF EXAMINATION: October 03, 2017 DATE OF INTERPRETATION: October 03, 2017 REQUESTING PHYSICIAN: Jone Melgar M.D. INDICATION: The patient is a 52-year-old male evaluated for CAD. PROCEDURE: After informed consent the patient received an intravenous injection of 12.6 mCi of Tc-9 9m sestamibi followed at the appropriate time interval by rest imaging. The patient then exercised a ccording to the standard Shashi protocol for 6 minutes achieving 7 METS. Resting heart rate was 68 bp m with a peak heart rate of 129 bpm which is 76 % of maximal predicted heart rate for age. Blood pr essure at rest was 152 / 106; blood pressure during exercise was 168 / 102. There was no chest pain during exercise. Exercise was discontinued because of fatigue. Baseline EKG demonstrates sinus rhyt hm. There were no diagnostic EKG changes of ischemia at peak exercise. During recovery there is bryan sient left bundle branch block with a heart rate round 100 bpm which resolves further into recovery. Approximately one minute and 30 seconds prior to the termination of exercise, the patient received an intravenous injection of 29.8 mCi of Tc-99m sestamibi followed by stress imaging. RAW DATA: Examination of the summed raw data revealed a poor quality study. MYOCARDIAL PERFUSION: The tomographic images demonstrate mild fixed inferior defect suggesting prior inferior MT. No definite ischemia seen. There is no transient ischemic dilation post stress. GATED IMAGES: The gated images demonstrate mild global hypokinesis LVEF 41% IMPRESSION: 1. Nondiagnostic ETT due to inability to obtain target heart rate of 85% maximal predicted heart rat e for age. No chest pain or ECG changes at this level of exercise. 2. Nondiagnostic myocardial perfusion scan for inducible ischemia as above. Fixed inferior defect hudson ggests prior inferior MT. No ischemia seen at this level of exercise. 3. Abnormal LV systolic function; LVEF 41%. 4. For future stress imaging studies if patient is unable to approximate 85% maximum predicted heart rate for age would change stress protocol to Lexiscan stress. Report Dictated By: Bradley Styles MD at 10/03/2017 3:27 PM Report E-Signed By: Bradley Styles MD at 10/03/2017 3:52 PM WSN:[id number]
== END ==
LOC: RESP 01:09
PROVIDERS: ATTEND Internal Medicine Cardiovascular Disease
DX: I25.10 Atherosclerotic heart disease of native coronary artery without angina pectoris (principal)
CPT/HCPCS: 36415; 78452; 93017; A9500; 82040; 82247; 82310; 82374; 82435; 82465; 82565; 82947; 83718; 84075; 84132; 84155; 84295; 84450; 84460; 84478; 84520

== ENCOUNTER → 2018-01-04 | Outpatient (CLI) | payer BC ==
[~2018-01-04] MED LIST changes: +IBUP-136 PO; -IBUP200C71 PO
--- NOTE | 2018-01-04 14:41 | RADIOLOGY IMAGING REPORT ---
FACILITY: [facility] PATIENT NAME: Yobani Mckeon : 1965 MR: [id number] V: [id number] EXAM DATE: ORDERING PHYSICIAN: NONI PALMER TECHNOLOGIST: Location: [facility] Patient: Yobani Mckeon : 1965 Visit/Account:[id number] Date of Sevice: 01/04/2018 CERVICAL SPINE 2 OR 3 VIEW HISTORY: Left-sided neck and head pain. No injury. COMPARISON: None. TECHNIQUE: AP, lateral, swimmer's, and odontoid views of the cervical spine. FINDINGS: On the lateral view, C1 to the top of C7 are visible. On the swimmer's view, the cervical t horacic junction and upper thoracic spine are visible. There is no fracture or dislocation. There is mild degenerative disc disease. There is mild degenerat josé facet disease. Prevertebral soft tissues are within normal limits. The lateral masses of C1 are w ell seated on C2. There are calcifications in the right and left neck, compatible with carotid artery calcified atheros clerosis. Sternal closure wires and surgical clips are visible at the upper chest. Visible lungs are clear. IMPRESSION: 1. Mild degenerative changes, but no acute osseous abnormality of the cervical spine. 2. Carotid calcified atherosclerosis. Report Dictated By: Ivania Foster at 01/04/2018 2:35 PM Report E-Signed By: Ivania Foster at 01/04/2018 2:38 PM WSN:[id number]
== END ==
LOC: RAD 13:37
PROVIDERS: ATTEND Nurse Practitioner Family
DX: I65.23 Occlusion and stenosis of bilateral carotid arteries (principal); M50.30 Other cervical disc degeneration, unspecified cervical region
CPT/HCPCS: 72040

== ENCOUNTER → 2018-07-19 | Outpatient (CLI) | payer BC ==
[2018-07-19 08:53] LABS: LDL CHOLESTEROL 42 mg/dl
== END ==
LOC: LAB 08:23
PROVIDERS: ATTEND Internal Medicine Cardiovascular Disease
DX: I25.10 Atherosclerotic heart disease of native coronary artery without angina pectoris (principal)
CPT/HCPCS: 36415; 82040; 82247; 82310; 82374; 82435; 82465; 82565; 82947; 83718; 84075; 84132; 84155; 84295; 84450; 84460; 84478; 84520; 86141

== ENCOUNTER 2018-12-19 12:10 | Emergency (ER) | payer BC ==
--- NOTE | 2018-12-19 12:18 | ER Report ---
History and Physical Time Seen By MD: 12:15 HPI/ROS CHIEF COMPLAINT: Left knee pain HISTORY OF PRESENT ILLNESS: This is a 53-year-old male who presents to emergency department for left knee pain. Patient states about 2 days ago he developed some left lateral knee pain, yesterday developed some increased pain with some swelling, today significant pain to the left knee it is swollen, hot to touch, he also has felt warm or feverish since yesterday, he does have a temperature of 100.9 in the emergency department. States the knee is very painful to move. No surgery on the left leg, he had several surgeries on the right leg secondary to a crush injury number of years ago. He does have a history of gout he is not sure if it's the left leg that he usually has the discomfort in, he is taking allopurinol on a regular basis. No chest pain or shortness of breath. No nausea or vomiting. No erythema or cellulitis around the knee. REVIEW OF SYSTEMS: Constitutional: As above. Eyes: No discharge. ENT: No sore throat. Cardiovascular: No chest pain, no palpitations. Respiratory: No cough, no shortness of breath. Gastrointestinal: No abdominal pain, no vomiting. Genitourinary: No hematuria. Musculoskeletal: As above. Skin: No rashes. Neurological: No headache. Allergies: Coded Allergies: No Known Allergies (Verified Allergy, Mild, 12/19/18) Home Meds Active Scripts Indomethacin (INDOMETHACIN) 50 Mg Capsule, 50 MG PO TID for 5 Days, #15 CAPSULE 0 Refills Prov:GUNNER GAMBOA [facility]- 12/19/18 Colchicine (Colchicine) 0.6 Mg Capsule, 1 CAPSULE PO NOW, #1 CAP 0 Refills Prov:GUNNER GAMBOA [facility]-BC 12/19/18 Allopurinol (ALLOPURINOL) 100 Mg Tablet, 1 TAB PO QDAY, #90 TAB 0 Refills Prov:ALLEN PADILLA [facility], [facility]-BC 05/16/17 Reported Medications Carvedilol (CARVEDILOL) 25 Mg Tablet, 25 MG PO QDAY 12/19/18 Clopidogrel Bisulfate (CLOPIDOGREL) 75 Mg Tablet, 75 MG PO QDAY 12/19/18 Atorvastatin Calcium (LIPITOR) 20 Mg Tablet, 1 TAB PO QDAY, TAB 08/22/17 Aspirin (ASPIRIN) 81 Mg Tab.chew, 81 MG PO QDAY, TAB.CHEW 08/22/17 Discontinued Reported Medications Ticagrelor (BRILINTA) 90 Mg Tablet, 90 MG PO 09/01/17 Discontinued Scripts Ondansetron Hcl (ZOFRAN) 4 Mg Tablet, 4 MG PO Q8-12H, #10 Prov:APOLLO ALONSO DO 09/01/17 Ondansetron Hcl (ZOFRAN) 4 Mg Tablet, 4 MG PO Q6H PRN for NAUSEA/VOMITING, #10 Prov:APOLLO ALONSO DO 09/01/17 Past Medical/Surgical History The patient has a past medical and surgical history of myocardial infarction 3, open heart surgery, coronary artery stents and angina, hypertension, gout, right leg crush injury with rods in the tibia-fibula. Reviewed Nurses Notes: Yes Hx Smoking: No Smoking Status: Never Smoker Hx Substance Use Disorder: No Hx Alcohol Use: Yes (OCC) Constitutional Vital Sign - Last 24 Hours 12/19/18 12/19/18 12/19/18 12/19/18 12:13 12:19 12:30 12:40 Temp 100.9 Pulse 86 87 Resp 18 B/P (MAP) 120/83 (95) 120/83 120/93 (102) Pulse Ox 91 89 O2 Delivery Room Air 12/19/18 12/19/18 12/19/18 12/19/18 13:00 13:05 13:07 13:20 Pulse 80 88 B/P (MAP) 115/94 (101) Pulse Ox 86 92 O2 Flow Rate 2.0 12/19/18 12/19/18 12/19/18 12/19/18 13:30 13:35 14:00 14:05 Pulse 82 81 B/P (MAP) 111/85 (94) 111/97 (102) Pulse Ox 92 92 12/19/18 12/19/18 14:10 14:30 Pulse 83 B/P (MAP) 100/78 (85) Pulse Ox 92 Physical Exam General Appearance: The patient is alert, has no immediate need for airway pr otection and no signs of toxicity. Eyes: Pupils equal and round no pallor or injection. ENT, Mouth: Mucous membranes are moist. Respiratory: There are no retractions, lungs are clear to auscultation. Cardiovascular: Regular rate and rhythm. No murmurs, clicks or rubs. Gastrointestinal: Abdomen is soft and non tender, no masses, bowel sounds normal. Neurological: Alert and oriented 4. Moving all cavities. Following. No focal neurodeficits P Skin: Left knee is very warm to touch, no erythema or cellulitis. Musculoskeletal: Neck is supple non tender. Extremities left knee is painful to touch, increased pain to the lateral aspect of the knee along the joint line, swelling over the entire knee, no deformities or crepitus. DIFFERENTIAL DIAGNOSIS: After history and physical exam differential diagnosis was considered for effusion, septic arthritis, gouty arthritis, cellulitis, fracture, foreign body. Medical Decision Making Data Points Result Diagram: 12/19/18 1256 12/19/18 1256 Laboratory Hematology Test 12/19/18 12:56 Red Blood Count 6.20 M/uL (4.00-5.60) Mean Corpuscular Volume 85.9 fL (80.0-96.0) Mean Corpuscular Hemoglobin 29.2 pg (26.0-33.0) Mean Corpuscular Hemoglobin Concent 34.0 g/dL (32.0-36.0) Red Cell Distribution Width 13.9 % (11.5-14.5) Mean Platelet Volume 8.1 fL (7.2-11.1) Neutrophils (%) (Auto) 78.4 % (39.4-72.5) Lymphocytes (%) (Auto) 12.5 % (17.6-49.6) Monocytes (%) (Auto) 7.7 % (4.1-12.4) Eosinophils (%) (Auto) 0.6 % (0.4-6.7) Basophils (%) (Auto) 0.8 % (0.3-1.4) Nucleated RBC Relative Count (auto) 0.1 /100WBC Neutrophils # (Auto) 6.4 K/uL (2.0-7.4) Lymphocytes # (Auto) 1.0 K/uL (1.3-3.6) Monocytes # (Auto) 0.6 K/uL (0.3-1.0) Eosinophils # (Auto) 0.1 K/uL (0.0-0.5) Basophils # (Auto) 0.1 K/uL (0.0-0.1) Nucleated RBC Absolute Count (auto) 0.01 K/uL Erythrocyte Sedimentation Rate 5 mm/HOUR (0-20) Sodium Level 142 mmol/L (137-145) Potassium Level 4.4 mmol/L (3.5-5.0) Chloride Level 106 mmol/L (98-107) Carbon Dioxide Level 23 mmol/L (22-30) Blood Urea Nitrogen 11 mg/dl (9-21) Creatinine 1.20 mg/dl (0.66-1.25) Glomerular Filtration Rate Calc > 60.0 Random Glucose 145 mg/dl (75-110) Calcium Level 9.2 mg/dl (8.4-10.2) Total Bilirubin 1.5 mg/dl (0.2-1.3) Aspartate Amino Transf (AST/SGOT) 23 U/L (0-35) Alanine Aminotransferase (ALT/SGPT) 49 U/L (0-56) Alkaline Phosphatase 67 U/L (0-126) C-Reactive Protein 3.5 mg/dl (<1.0) Total Protein 7.6 g/dl (6.3-8.2) Albumin 4.4 g/dl (3.5-5.0) Chemistry Test 12/19/18 12:56 White Blood Count 8.2 k/uL (4.5-11.0) Red Blood Count 6.20 M/uL (4.00-5.60) Hemoglobin 18.1 g/dL (14.0-18.0) Hematocrit 53.3 % (42.0-52.0) Mean Corpuscular Volume 85.9 fL (80.0-96.0) Mean Corpuscular Hemoglobin 29.2 pg (26.0-33.0) Mean Corpuscular Hemoglobin Concent 34.0 g/dL (32.0-36.0) Red Cell Distribution Width 13.9 % (11.5-14.5) Platelet Count 156 K/uL (150-450) Mean Platelet Volume 8.1 fL (7.2-11.1) Neutrophils (%) (Auto) 78.4 % (39.4-72.5) Lymphocytes (%) (Auto) 12.5 % (17.6-49.6) Monocytes (%) (Auto) 7.7 % (4.1-12.4) Eosinophils (%) (Auto) 0.6 % (0.4-6.7) Basophils (%) (Auto) 0.8 % (0.3-1.4) Nucleated RBC Relative Count (auto) 0.1 /100WBC Neutrophils # (Auto) 6.4 K/uL (2.0-7.4) Lymphocytes # (Auto) 1.0 K/uL (1.3-3.6) Monocytes # (Auto) 0.6 K/uL (0.3-1.0) Eosinophils # (Auto) 0.1 K/uL (0.0-0.5) Basophils # (Auto) 0.1 K/uL (0.0-0.1) Nucleated RBC Absolute Count (auto) 0.01 K/uL Erythrocyte Sedimentation Rate 5 mm/HOUR (0-20) Glomerular Filtration Rate Calc > 60.0 Calcium Level 9.2 mg/dl (8.4-10.2) Total Bilirubin 1.5 mg/dl (0.2-1.3) Aspartate Amino Transf (AST/SGOT) 23 U/L (0-35) Alanine Aminotransferase (ALT/SGPT) 49 U/L (0-56) Alkaline Phosphatase 67 U/L (0-126) C-Reactive Protein 3.5 mg/dl (<1.0) Total Protein 7.6 g/dl (6.3-8.2) Albumin 4.4 g/dl (3.5-5.0) EKG/Imaging Imaging PATIENT NAME: Yobani Mckeon : 1965 MR: [id number] V: [id number] EXAM DATE: ORDERING PHYSICIAN: GUNNER GAMBOA TECHNOLOGIST: Location: [facility] Patient: Yobani Mckeon : 1965 Visit/Account:[id number] Date of Sevice: 12/19/2018 KNEE 3 VIEW LEFT Indication: Knee pain, history of gout Comparison: 05/13/2017 Findings: No evidence of fracture, dislocation, or acute osseous abnormality of the left knee. There is been progression of the patient's degenerative change. There is now moderate to severe tricompartmental degenerative change with peripheral osteophyte formation noted along the femoral condyles and tibial plateau. Irregularity of the articular surfaces noted particularly within the medial compartment. There is a trace joint effusion. Surgical clips are noted along the medial aspect of the knee No evidence of radiopaque foreign body. IMPRESSION: 1. No acute abnormality noted, but there has been progression of the patient's tricompartmental degenerative joint disease. Report Dictated By: Raffaele Ayala at 12/19/2018 1:22 PM Report E-Signed By: Raffaele Ayala at 12/19/2018 1:23 PM [id number] ED Course/Re-evaluation Clinical Indication for ER IV: Hydration, IV Access ED Course Patient was admitted to room. A history of physical obtained. Differential diagnoses were considered. An IV is started. A CBC, CMP, ESR and CRP were obtained. Laboratory studies unremarkable, CRP mildly elevated otherwise no significant findings on blood work. No acute abnormalities identified on the x- ray of the knee. I did have Dr. Esparza evaluated the knee as noted below, the knee was not tapped, although the patient does have a fever, to determine if this was likely gouty arthritis, patient was started on colchicine and indomethacin, patient was given the 1st dose of the colchicine in the emergency department. Patient was also given 1 L normal saline bolus, 4 mg IV Zofran and 4 mg IV morphine, patient states he is feeling better at the time of discharge, patient was instructed to return to ER for any concerns worsening symptoms, follow-up with his primary care provider for reevaluation H breast understanding discharged home. 12/19/2018 1:39:[address] Esparza was available to evaluate the knee. did not tap the knee, will treat for gout. 12/19/2018 2:27:35 pm patient states he's feeling better, we will discharge home. Decision to Disposition Date: Dec 19, 2018 Decision to Disposition Time: 14:20 Depart Departure Latest Vital Signs Vital Signs Date Time Temp Pulse Resp B/P (MAP) Pulse Ox O2 Delivery O2 Flow Rate FiO2 12/19/18 14:30 100/78 (85) 12/19/18 14:10 83 92 12/19/18 13:20 2.0 12/19/18 12:19 100.9 18 Room Air Impression: Primary Impression: Gouty arthritis of left knee Condition: Improved Disposition: HOME OR SELF-CARE Referrals: NONI PALMERP (PCP) 1 Week New Scripts Indomethacin (INDOMETHACIN) 50 Mg Capsule 50 MG PO TID for 5 Days, #15 CAPSULE 0 Refills Prov: UGNNER GAMBOA-BC 12/19/18 Colchicine (Colchicine) 0.6 Mg Capsule 1 CAPSULE PO NOW, #1 CAP 0 Refills Prov: GUNNER GAMBOAP-BC 12/19/18 Patient Instructions: Gout (ED) Additional Instructions: Please bean picker the medications at your pharmacy and take as directed. Do not take Ibuprofen or any other NSAIDS accpet the ones that have been prescribed for the next 5 days. You can take tylenol as well. Drink plenty of water. Get plenty of rest. Avoid alcohol and red meat for the next week. Please follow up with your PCP in one week for reevaluation. Return to the ED for any other concerns or worsening symptoms. GUNNER GAMBOA RADIOTELEGRAPH OPERATOR-BC Dec 19, 2018 12:18
[2018-12-19] MEDS ORDERED: CLOP75TA PO (12:24)
[2018-12-19] MEDS ORDERED: CARV25TA78 PO (12:24)
[2018-12-19] MEDS ORDERED: NS(*) 0.9% 1000 ML BAG 1,000 ML IV ONE (12:35)
[2018-12-19] MEDS ORDERED: MORPHINE 4 MG/ML SDV IVP ONE (12:35)
[2018-12-19] MEDS ORDERED: ONDANSETRON 4 MG/2 ML VIAL IVP ONE (12:35)
[2018-12-19 13:07] LABS: PLATELET COUNT, AUTOMATED 156 K/uL (150-450)
--- NOTE | 2018-12-19 13:29 | RADIOLOGY IMAGING REPORT ---
FACILITY: [facility] [place] PATIENT NAME: Yobani Mckeon : 1965 MR: [id number] V: [id number] EXAM DATE: ORDERING PHYSICIAN: GUNNER GAMBOA TECHNOLOGIST: Location: [facility] Patient: Yobani Mckeon : 1965 Visit/Account:[id number] Date of Sevice: 12/19/2018 KNEE 3 VIEW LEFT Indication: Knee pain, history of gout Comparison: 05/13/2017 Findings: No evidence of fracture, dislocation, or acute osseous abnormality of the left knee. There is been progression of the patient's degenerative change. There is now moderate to severe trico mpartmental degenerative change with peripheral osteophyte formation noted along the femoral condyles and tibial plateau. Irregularity of the articular surfaces noted particularly within the medial comp artment. There is a trace joint effusion. Surgical clips are noted along the medial aspect of the knee No evidence of radiopaque foreign body. IMPRESSION: 1. No acute abnormality noted, but there has been progression of the patient's tricompartmental degen erative joint disease. Report Dictated By: Raffaele Ayala at 12/19/2018 1:22 PM Report E-Signed By: Raffaele Ayala at 12/19/2018 1:23 PM [id number]
[2018-12-19] MEDS ORDERED: INDO-23 PO (13:48)
[2018-12-19] MEDS ORDERED: COLC0.6C3 PO (13:48)
[2018-12-19] MEDS ORDERED: COLCHICINE 0.6 MG TAB PO ONE (13:50)
[2018-12-19 14:30] VITALS: BP 100/78
== END 2018-12-19 14:43 | disposition home or self-care (01) ==
LOC: ER 12:16
DX: M10.062 Idiopathic gout, left knee (principal)
CPT/HCPCS: 73562; 85025; 85651; 86140; 96361; 96374; 96375; 99284; J2270; J2405; J7030; 82040; 82247; 82310; 82374; 82435; 82565; 82947; 84075; 84132; 84155; 84295; 84450; 84460; 84520

== ENCOUNTER → 2019-01-16 | Outpatient (CLI) | payer BC ==
[~2019-01-16] MED LIST changes: +CARV25TA78 PO; +CLOP75TA PO; +COLC0.6C3 PO; +INDO-23 PO
== END ==
LOC: LAB 08:09
PROVIDERS: ATTEND Internal Medicine Cardiovascular Disease
DX: E78.00 Pure hypercholesterolemia, unspecified (principal); I10 Essential (primary) hypertension; I25.5 Ischemic cardiomyopathy; I25.10 Atherosclerotic heart disease of native coronary artery without angina pectoris; Z95.1 Presence of aortocoronary bypass graft; Z95.5 Presence of coronary angioplasty implant and graft
CPT/HCPCS: 36415; 82465; 83718; 84478

== ENCOUNTER → 2019-01-20 | Outpatient (CLI) | payer BC | LOC: LAB 11:45 | PROVIDERS: ATTEND Internal Medicine Cardiovascular Disease | DX: I25.10 Atherosclerotic heart disease of native coronary artery without angina pectoris (principal) | CPT/HCPCS: 36415; 82040; 82247; 82310; 82374; 82435; 82565; 82947; 84075; 84132; 84155; 84295; 84450; 84460; 84520 ==